=== PATIENT | male | born 1970 | race Caucasian/White ===

== ENCOUNTER 2017-05-20 05:27 | Day surgery (SDC) | payer OTHER ==
[2017-05-20] MEDS ORDERED: NS 1,000 ML IV ONE (06:10)
[2017-05-20 06:38] LABS: % IMMATURE GRANULYOCYTES 0.3 % (0.0-1.1); ABSOLUTE IMMATURE GRANULOCYTES 0.02 10^3/uL (0.00-0.10); ADD DIFF? NO; ADD MORPH? NO; ADD SCAN? NO; ATYPICAL LYMPHOCYTE FLAG 10 (0-99); FRAGMENT RBC FLAG 0 (0-99); HEMATOCRIT 49.5 % (40.0-51.0); HEMOGLOBIN 16.5 g/dL (13.7-17.5); LEFT SHIFT FLG 0 (0-99); LIPEMIA HEMOLYSIS FLAG 80 (0-99); MEAN CELL HEMOGLOBIN 31.8 pg (27.9-34.1); MEAN CELL HEMOGLOBIN CONCENTR. 33.3 g/dL (32.4-36.7); MEAN CELL VOLUME 95.4 fL (81.5-99.8); MEAN PLATELET VOLUME 12.1 fL (8.7-11.7); PLATELET CLUMPS FLAG 0 (0-99); PLATELET COUNT 136 10^3/uL (150-400); RED BLOOD CELL COUNT 5.19 10^6/uL (4.40-6.38); RED CELL DISTRIBUTION WIDTH 14.3 % (11.5-15.2)
--- NOTE | 2017-05-20 06:40 | PDHPUP ---
History & Physical Update H&P update statement: This history and physical update is based on an assessment of the patient which was completed after admission or registration (within 24 hours), but prior to the surgery/procedure. H&P update: no change in patient's condition since H&P completed
--- NOTE | 2017-05-20 06:41 | PDPROPOC ---
Sedation Plan of Care ASA Classification: ASA 2 Planned drugs: fentanyl, midazolam Mallampati Score: Class 2 Mallampati Reference Image: Patient passed 3-3-2 rule?: Yes
[2017-05-20] MEDS ORDERED: LIDOCAINE 1% 300 MG/30 ML SDV ONE (07:09)
[2017-05-20] MEDS ORDERED: fentaNYL 100 MCG/2 ML INJ ONE (07:09)
[2017-05-20] MEDS ORDERED: MIDAZOLAM 2 MG/2 ML VIAL ONE (07:09)
[2017-05-20 07:14] LABS: ANION GAP 8 mEq/L (8-16); CALCIUM 9.2 mg/dL (8.5-10.4); CARBON DIOXIDE 26 mEq/l (22-31); CHLORIDE 103 mEq/L (97-110); CHOLESTEROL 155 mg/dL (140-200); CHOLESTEROL/HDL RATIO 2.98 RATIO (1.00-4.97); GLOMERULAR FILTRATION RATE > 60; GLUCOSE 104 mg/dL (70-100); HIGH DENSITY LIPOPROTEIN 52 mg/dL (40-65); LDL/HDL RATIO 1.46 RATIO (1.00-3.64); LOW DENSITY LIPOPROTEIN 76 mg/dL (70-100); MAGNESIUM 1.9 mg/dL (1.6-2.3); NON-HIGH DENSITY LIPOPROTEIN 103 mg/dL (90-129); POTASSIUM 4.9 mEq/L (3.5-5.2); SODIUM 137 mEq/L (134-144); TRIGLYCERIDE 135 mg/dL (40-150); VERY LOW DENSITY LIPOPROTEINS 27 mg/dL (8-25)
[2017-05-20] MEDS ORDERED: OXYCODONE/APAP 5/325 TAB PO PRN (08:03)
[2017-05-20] MEDS ORDERED: ATROPINE SULFATE 1 MG/10 ML SYR IVP PRN (08:03)
[2017-05-20] MEDS ORDERED: ONDANSETRON 4 MG/2 ML VIAL IVP PRN (08:03)
[2017-05-20] MEDS ORDERED: HYDROCODONE/APAP 5/325 TAB PO PRN (08:03)
--- NOTE | 2017-05-20 08:22 | GPN ---
[f rep st] PROCEDURE NOTE DATE OF PROCEDURE: 05/20/2017 INDICATIONS FOR PROCEDURE: Severe pulmonary hypertension. PROCEDURE: 1. A 7-Indian sheath right common femoral vein. 2. Right heart catheterization. DESCRIPTION OF PROCEDURE: Briefly, this is a 47-year-old male with history of severe pulmonary hyper tension, being evaluated for titration of home medications with diagnostic right heart catheterizatio n per Pulmonology. After informed consent, the patient was brought to [facility] where his right groin was prepped and draped i n a sterile fashion. Using local lidocaine, a 7-Indian sheath in the left common femoral vein. A Sw an-Elvira catheter was then advanced. RA pressure was measured to be 26/33 with a mean of 25. RV pres sure was measured to be systolic of 106/15 with a mean of approximately 40. PA pressure was measured to be a 100/43 with a mean of 67. Wedge pressure had an A-wave of 17, V-wave of 15 with mean of 15. Pulmonary arterial saturation was 71% with an AO sat of 96%, which was taken off the SPO2. Cardiac output was measured to be by Arabella 4.9 L per minute with a cardiac index of 2.23. PVR by Green Units was 10.43. The catheter was then removed and the right groin was closed with manual pressure. The patient tolerated the procedure well with no complications. IMPRESSION: 1. Severe pulmonary hypertension. 2. Normal cardiac output. PLAN: The patient will have the results of his right heart catheterization sent to his dynamics ax developer . Further orders following outpatient titration of medications. /[id number]/MODL
== END 2017-05-20 11:00 | disposition home or self-care (01) ==
LOC: FCATH 05:27
PROVIDERS: ATTEND Internal Medicine Cardiovascular Disease
PROC: 4A023N6 Measurement of Cardiac Sampling and Pressure, Right Heart, Percutaneous Approach (ICD-10-PCS; principal; 2017-05-20)
DX: I27.29 Other secondary pulmonary hypertension (principal); R06.00 Dyspnea, unspecified
CPT/HCPCS: J1644; J2250; J3010